=== PATIENT | female | born 1980 | race Caucasian/White ===

== ENCOUNTER 2020-02-05 21:28 | Emergency (ER) | payer OTHER ==
[~2020-02-05] VITALS: Ht 152.4 cm; Wt 74.8 kg
[2020-02-05 22:07] LABS: URINE BILIRUBIN NEGATIVE (Negative); URINE BLOOD NEGATIVE (Negative); URINE CLARITY CLEAR; URINE COLOR YELLOW; URINE GLUCOSE-RANDOM* 1+ (Negative); URINE KETONES 1+ (Negative); URINE LEUKOCYTES-REFLEX NEGATIVE (Negative); URINE NITRITE-REFLEX NEGATIVE (Negative); URINE PROTEIN (DIPSTICK) NEGATIVE (Negative); URINE UROBILINOGEN 0.2 E.U./dl (0.2-1.0)
[2020-02-05 22:14] LABS: ABSOLUTE NEUTROPHILS 6.9 thou/uL (1.4-8.2); BASOPHILS 0.5 % (0.0-2.0); EOSINOPHILS 1.3 % (0.0-3.0); HEMATOCRIT 41.8 % (37.0-47.0); HEMOGLOBIN 13.9 gm/dL (12.0-15.0); LYMPHOCYTES 24.5 % (24.0-44.0); MCH 27.5 pg (26.0-34.0); MCHC 33.4 g/dL (28.0-37.0); MCV 82.4 fL (80.0-100.0); MONOCYTES 8.9 % (1.0-8.0); PLATELET COUNT 318 thou/uL (150-400); POLYS 64.8 % (36.0-66.0); RBC 5.07 mil/uL (4.20-5.00); RDW 14.2 % (10.5-14.5); WBC 10.6 thou/uL (4.0-11.0)
[2020-02-05 22:20] LABS: CALCIUM 8.5 mg/dL (8.5-10.1); POTASSIUM 3.7 mmol/L (3.5-5.1)
[2020-02-05 22:26] LABS: ALBUMIN 3.5 g/dL (3.4-5.0); TOTAL BILIRUBIN 0.1 mg/dL (0.2-1.0)
[2020-02-06] MEDS ORDERED: ZOFRAN ODT4 MG PO (01:18)
[2020-02-06] MEDS ORDERED: SENNA-DOCUSATE1 EAC1 PO (01:18)
[2020-02-06] MEDS ORDERED: NORCO 5-325 TA1 EAC2 PO (01:18)
[2020-02-06] MEDS ORDERED: FLOMAX0.4 MG PO (01:23)
[2020-02-06 01:52] VITALS: BP 119/65
--- NOTE | 2020-02-06 09:21 | EKG ---
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
--- NOTE | 2020-02-06 09:22 | EKG ---
[facility] [place] [address] ELECTROCARDIOGRAM REPORT Name: JANET PEREZ Room #: [facility]#: [id number] Admission: 02/05/20 Attend Phys: Discharge: 02/06/20 Date of : 78 Report #: [id number] THIS REPORT FOR: cc: KENZIE - Rosario family physician/PCP FAM - No family physician/PCP Lio Leal MD 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1980 Requested By: Kelvin Isidro Order Number: [id number] MD: Lio Leal Measurements Intervals [place] Rate: 71 P: 14 NV: 174 QRS: 35 QRSD: 89 T: -14 QT: 406 QTc: 442 Interpretive Statements Sinus rhythm Cannot rule out septal infarct age indeterminate Borderline T abnormalities, inferior leads Compared to ECG 02/05/2020 23:12:03 No significant changes Electronically Signed On 02-06-2020 9:21:53 CDT by Lio Leal [email or web address] <ELECTRONICALLY SIGNED> By: Lio Leal MD, [facility] 02/06/20 0921 2316 [id number] Lio Leal MD, [facility] /EPI
== END 2020-02-06 01:55 | disposition home or self-care (01) ==
LOC: ER 21:28
PROVIDERS: Emergency Medicine
DX: N13.2 Hydronephrosis with renal and ureteral calculous obstruction (principal); F17.210 Nicotine dependence, cigarettes, uncomplicated; Z87.442 Personal history of urinary calculi